=== PATIENT | female | born 1980 | race Caucasian/White ===

== ENCOUNTER → 2018-01-31 | Outpatient (CLI) | payer BC ==
[~2018-01-31] MED LIST: DIATRIZOATE MEGL/DIATRIZOA SOD 30 ML BTL PO ONE; IOPAMIDOL 370 MG/ML 200 ML INFUS..BTL INJ ONE; SODIUM CHLORIDE 0.9% 50ML 50 ML ONE
--- NOTE | 2018-01-31 09:24 | Diagnostic Imaging Report ---
PROCEDURE:CT ABDOMEN AND PELVIS WITH CONTRAST COMPARISON:None. INDICATIONS:Abdominal pain TECHNIQUE: Routine protocol Volumetric CT abdomen and pelvis after administration of 100 mL Isovue-370 intravenous contrast and 900 mL positive enteric contrast. Multiplanar reformatted images. DLP: 158.55 FINDINGS: Clear lung bases. No pleural effusions. Normal heart size. Liver: Normal Gallbladder: Normal Pancreas: Normal Spleen: Normal Adrenal glands: Normal Kidneys and ureters: Normal Urinary bladder: Normal Uterus and adnexa: Normal uterus. 3.5 cm simple appearing cyst in the left adnexa. Bowel: Normal caliber. Normal appendix. Peritoneum: Normal Vasculature: Mild atherosclerosis of the infrarenal aorta. Otherwise, normal Lymph nodes: Normal Skeleton: Intact. Soft tissues: Normal CONCLUSION: 1. No conspicuous etiology for abdominal pain. 2. 3.5 cm left adnexal cyst. This is almost certainly benign in a premenopausal patient and does not require followup per ACR consensus guidelines. Dictated by: Adrian Coon M.D. on 01/31/2018 at 9:25 Electronically approved by: Adrian Coon M.D. on 01/31/2018 at 9:25
== END ==
LOC: CT 07:36
PROVIDERS: ATTEND Internal Medicine Gastroenterology
DX: R10.9 Unspecified abdominal pain (principal)
CPT/HCPCS: 74177; 81025; Q9967

== ENCOUNTER → 2018-03-13 | Day surgery (SDC) | payer BC ==
[~2018-03-13] MED LIST changes: +BUPROPION XL150 MG PO; -DIATRIZOATE MEGL/DIATRIZOA SOD 30 ML BTL PO ONE; +FENTANYL CITRATE/PF 100MCG/2 ML INJ ONE; -IOPAMIDOL 370 MG/ML 200 ML INFUS..BTL INJ ONE; +LO LOESTRIN FE1 EACH PO; +MIDAZOLAM HCL 2 MG/2 ML VIAL ONE; +PROBIOTICS PO; +PROGESTERONE200 MG PO; +PROPOFOL IV EMULSION 10 MG/ML 50 ML VIAL ONE; -SODIUM CHLORIDE 0.9% 50ML 50 ML ONE; +[UNRECOGNIZED DRUG - OTHER] PO
--- OUTSIDE RECORDS SUMMARY | 2018-03-13 08:02 | XMS REPORT ---
Author Author [facility] Address Unknown Phone Unavailable Care Team Providers Care Referral And Information Aide Name Role Phone ROXANA HILL Unavailable Unavailable Problems This patient has no known problems. Allergies, Adverse Reactions, Alerts This patient has no known allergies or adverse reactions. Medications This patient has no known medications. Results Test Description Test Time Test Comments Text Results Atomic Results Result Comments CT ABDOMEN/PELVIS W [place] [address] Patient Name: OUMAR BARON N MR #: [id number] : 1980 Age/Sex: 37/F Req #: [id number] [facility] Physician: Ordered by: ROXANA HILL MD Report #: [id number] Location: CT Room/Bed: Procedure: [id number] CT/CT ABDOMEN/PELVIS W Exam Date: 01/31/18 Exam Time: 0850 REPORT STATUS: Signed PROCEDURE: CT ABDOMEN AND PELVIS WITH CONTRAST COMPARISON: None. INDICATIONS: Abdominal pain TECHNIQUE: Routine protocol Volumetric CT abdomen and pelvis after administration of 100 mL Isovue-370 intravenous contrast and 900 mL positive enteric contrast. Multiplanar reformatted images. DLP: 158.55 FINDINGS: Clear lung bases. No pleural effusions. Normal heart size. Liver: Normal Gallbladder: Normal Pancreas: Normal Spleen: Normal Adrenal glands: Normal Kidneys and ureters: Normal Urinary bladder: Normal Uterus and adnexa: Normal uterus. 3.5 cm simple appearing cyst in the left adnexa. Bowel: Normal caliber. Normal appendix. Peritoneum: Normal Vasculature: Mild atherosclerosis of the infrarenal aorta. Otherwise, normal Lymph nodes: Normal Skeleton: Intact. Soft tissues: Normal CONCLUSION: 1. No conspicuous etiology for abdominal pain. 2. 3.5 cm left adnexal cyst. This is almost certainly benign in a premenopausal patient and does not require followup per ACR consensus guidelines. Dictated by: Gianfranco Coon M.D. on 01/31/2018 at 9:25 Electronically approved by: Gianfranco Coon M.D. on 01/31/2018 at 9:25 Dictated By: GIANFRANCO COON MD 4 Transcribed By: CAROL on 01/31/18924 COPY TO: ROXANA HILL MD
--- OUTSIDE RECORDS SUMMARY | 2018-03-13 08:02 | XMS REPORT | Clinical Summary ---
Author Author [facility] Address Unknown Phone Unavailable Care Team Providers Care Sheet Metal Mechanic Name Role Phone Gretchen Monserrat MCELROY PCP Unavailable Allergies Active Allergy Reactions Severity Noted Date Comments Fluconazole Other (See Comments), Low 01/25/2017 Other(hemorrhoids) Rash Sulfa (Sulfonamide Rash Low 01/25/2017 Antibiotics) Current Medications Prescription Sig. Disp. Refills Start End Date Status Date buPROPion SR (WELLBUTRIN bupropion HCl SR 150 mg Active SR) 150 MG 12 hr tablet tablet,12 hr sustained-release TK 1 T PO BID norethindrone-e.estradiol Lo Loestrin Fe 1 mg-10 Active -iron (LO LOESTRIN FE) 1 mcg (24)/10 mcg (2) mg-10 mcg (24)/10 mcg (2) tablet tablet progesterone (PROMETRIUM) progesterone micronized Active 200 MG capsule 200 mg capsule TK 1 C PO QD L.acid/L.casei/B.bif/B.lo Take 1 tablet by mouth Active n/FOS (PROBIOTIC BLEND daily. ORAL) NON FORMULARY Take 2 capsules by mouth Active 2 (two) times a day. GANODERMA LUCIDIUM hydroxychloroquine Take 1 tablet (200 mg 30 tablet 3 02/15/20 Active (PLAQUENIL) 200 mg tablet total) by mouth daily. 18 19 progesterone (PROMETRIUM) Last 2 weeks of menstrual 01/26/20 02/08/20 Discontin 200 MG capsule cycle 17 18 ued Active Problems Problem Noted Date Bilateral ovarian cysts 02/07/2018 Raynaud's disease without gangrene 02/07/2018 Gastroesophageal reflux disease without esophagitis 02/07/2018 Family history of celiac disease 02/07/2018 Family history of autoimmune disorder 02/07/2018 Endometriosis 11/01/2017 SUPA positive 11/01/2017 Annual physical exam 11/01/2017 Dizziness 11/01/2017 Smoking 11/01/2017 Encounters Date Type Specialty Care Team Description 02/14/2018 Orders Only Rheumatology Darlin Michael MD 02/07/2018 Office Visit Rheumatology Darlin Michael MD Gastroesophageal reflux disease without esophagitis (Primary Dx); SUPA positive; Raynaud's disease without gangrene; Family history of celiac disease 01/16/2018 Telephone Family Medicine Rosario Godinez DO Chronic pelvic pain in female (Primary Dx) 11/03/2017 Telephone Family Medicine Rosario Godinez DO 11/01/2017 Office Visit Family Medicine Rosario Godinez DO Annual physical exam (Primary Dx); SUPA positive; Dizziness; Smoking 10/26/2017 Ancillary Radiology Alice Johnson MD Metrorrhagia Orders 10/25/2017 Transcribe Radiology Alice Johnson MD Metrorrhagia ( Primary Dx) Orders after 03/12/2017 Family History Medical History Relation Name Comments Celiac disease Daughter Heart attack Father Heart disease Father Lupus Maternal Aunt Alcohol abuse Maternal Grandmother Fibromyalgia Mother Miscarriages / Mother 3 miscarriages Stillbirths COPD Paternal Grandfather Heart disease Paternal Grandmother Mental illness Sister Relation Name Status Comments Daughter Father Maternal Aunt Alive Maternal Grandmother Mother Alive Paternal Grandfather Paternal Grandmother Sister Social History Tobacco Use Types Packs/Day Years Used Date Current Every Day Smoker Cigarettes Smokeless Tobacco: Never Used Comments: smoke 5 cigs a day Alcohol Use Drinks/Week oz/Week Comments No Sex Assigned at Date Recorded Not on file Last Filed Vital Signs Vital Sign Reading Time Taken Blood Pressure 107/74 02/07/2018 3:02 PM CDT Pulse 68 02/07/2018 3:02 PM CDT Temperature 37 C (98.6 F) 11/01/2017 2:22 PM TWILL CUTTER Respiratory Rate - - Oxygen Saturation 100% 11/01/2017 2:22 PM TWILL CUTTER Inhaled Oxygen - - Concentration Weight 44 kg (97 lb) 02/07/2018 3:02 PM CDT Height 152.4 cm (5') 02/07/2018 3:02 PM CDT Body Mass Index 18.94 02/07/2018 3:02 PM CDT Plan of Treatment Health Maintenance Due Date Last Done Comments CERVICAL CANCER SCREENING 1999 INFLUENZA VACCINE 05/03/2018 Results * Microscopic Examination (02/07/2018 4:40 PM) Component Value Ref Range WBC, UA None seen 0 - 5 /hpf RBC, UA None seen 0 - 2 /hpf Epithelial cells (non None seen 0 - 10 /hpf renal) Mucus, UA Present Not Estab. Bacteria, UA None seen None seen/Few Specimen Performing Laboratory [facility] Narrative Performed at:[address] [place], [place] [id number] Drapery Hanger: Nathaniel Goodson MD, Phone:[phone] * Urinalysis, automated with microscopy (02/07/2018 4:40 PM) Component Value Ref Range Specific gravity, urine 1.013 1.005 - 1.030 pH, urine 7.0 5.0 - 7.5 Color, UA Yellow Yellow Appearance Clear Clear WBC esterase, urine Negative Negative Protein, UA Negative Negative/Trace Glucose, urine Negative Negative Ketones, UA Negative Negative Occult blood, urine Negative Negative Bilirubin, UA Negative Negative Urobilinogen, UA 0.2 0.2 - 1.0 mg/dL Nitrite, UA Negative Negative Microscopic examination CommentComment: Microscopic follows if indicated. Microscopic examination See below:Comment: Microscopic was indicated and was performed. Specimen Performing Laboratory Urine [facility] Narrative Performed at:[address] [place], [place] [id number] Drapery Hanger: Nathaniel Goodson MD, Phone:[phone] * Celiac Disease HLA DQ Association (02/07/2018 4:16 PM) Component Value Ref Range DQ2 (DQA1 0501/0505,DQB1 Positive 02XX) DQ8 (DQA1 03XX, DQB1 Negative 0302) Comment: Final Results: DQA1*05:01,05:BHS DQB1*02:AYJSC,02:AYJSD Code Translation: AYJSD 02:10/04:04:02/01: 07:08:09:13 :14:15:16:17:18N/:19 :20N/:21:22:23:24::29/11:28/02:29::3102:32/02:33 /02:34/02:35/02:36/02:37/02:38/02:39/02:40 /02:41/02:42/02:43/02:44/02:45/02:46/02:47 /02:49/02:52/02:53Q/02:55/02:56/02:58N /02:59/02:60/02:61/02:63/02:64/02:66 /02:67N/02:68/02:69/02:70/02:71/02:72 /02:73/02:7402::::::85:86:87:::::9302:9402:96N/02:98/02:9902:100 /02:101 [facility] 10/07/06/13 [facility] 02:01:04/03:08: 06/04:13:14:15 :16:17:18N:21/11:20::22:23:24:25:29/11:28:29 :30:31:3202:3302:3402:3502:36 02:3702:3802:3902:4002:4102:4202:43 /02:44/02:45/02:46/02:47/02:49/02:52 /02:53Q/02:55/02:56/02:58N/02:59/02:60 /02:61/02:63/02:64/02:66/02:67N/02:68 /02:69/02:70/02:71/02:72/02:73/02:74/02:76 02:77:78:79/02:83/02:85/02:86/02:87 /02:88/02:90/02:91/02:92/02:93/02:94 /02:96N/02:98/02:99/02:100/02:101 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 Celiac Disease risk from the HLA DQA/DQB genotype is approximately 1:10 (10%) Allele interpretation for all loci based on IMGT/HLA database version 3.29 HLA [facility] [place] ID Number [id number] Greater than 95% of celiac patients are positive for either DQ2 or DQ8 (Isaac and Mickey, (1993) Gastroenterology 105:910-922). However these antigens may also be present in patients who do not have Celiac disease. Comment Comment Comment: This test was performed using Polymerase Chain Reaction/(PCR)Sequence Specific Oligonucleotide Probes (SSOP) (ChartCube) technique. Sequence Based Typing (SBT) and/or Sequence Specific Primers (SSP) may be used as supplemental methods when necessary. Please contact HLA Customer Service at if you have any questions. Director of HLA Laboratory Dr Channing Marquis, PhD Additional information Comment Comment: Celiac disease is a chronic immune-mediated inflammatory disorder with multi-systemic manifestations, both gastrointestinal and non- gastrointestinal. In genetically susceptible individuals, ingestion of gluten can cause inflammation and damage to the small intestine mucosa. Celiac disease has an incidence of 1:100 in the [place]. In order for celiac disease to develop, human leukocyte antigen (HLA) molecule DQ2 (encoded by alleles DQA1*0501 or *0505 plus DQB1*0201 or *0202), half of the DQ2 molecule, or DQ8 (encoded DQA*03 plus DQB1*0302) must be present. These molecules confer susceptibility to celiac disease by binding to gluten and interacting with intestinal T cells, leading to a pathologic immune response involving autoimmunity. The familial nature of susceptibility to celiac disease is shown by an 11-18% prevalence of this disorder in siblings of individuals with celiac disease and a 70% concordance rate between identical twins. Among celiac disease patients, >90% carry DQ2, 5-10% carry DQ8, and the remaining carry half DQ2. The presence of DQ2, half DQ2, or DQ8 alone is not sufficient for a diagnosis of celiac disease. Clinical symptoms, positive test results for endomysial, tissue transglutaminase or deamidated gliadin peptide antibodies, or abnormal small bowel biopsy results all support a diagnosis of celiac disease. Most individuals with a positive genetic result do not develop celiac disease. The risk for developing celiac disease in individuals with a positive genetic result approaches 40% if there is a known first degree relative with celiac disease. Table: Genetic Risk from HLA-DQA/DQB Genotypes Genotype Risk DQ2 + DQ8 1:7 (14.3%) DQ2 + DQ2 OR DQ2 Homozygous *02 1:10 (10%) DQ8 + DQ8 1:12 (8.4%) DQ8 + DQB1*02 1:24 (4.2%) Homozygous DQB*02 1:26 (3.8%) DQ2 alone 1:35 (2.9%) DQ8 alone 1:89 (1.1%) Population risk (genotype unknown) 1:100 (1%) 1/2 DQ2:DQB1*02 1:210 (0.5%) 1/2 DQ2:DQA1*05 1:1842 (0.05%) No HLA-DQA/DQB susceptibility alleles 1:2518 (<0.04%) From Kristie et al. 2009 for all genotypes except DQ8 + DQ8 DQ8 + DQ8 risk is from Mariama et al. 2009 Other influences on risk for celiac disease The overall risk for an individual to develop celiac disease is influenced not just by genetic risk from the HLA-DQA/DQB genotype, but by presence of symptoms of celiac disease, positive results for celiac antibody tests or intestinal biopsy, and having relatives with celiac disease. Celiac disease risk is also higher in individuals with IgA deficiency, Down syndrome, Ledezma syndrome, and the autoimmune disorders Type I diabetes mellitus, Sjogren syndrome, and thyroiditis. There are also additional genetic influences on the development of celiac disease in individuals predisposed to the disorder. References: 1. Macario GAVIN and Zhen Gonzales. Celiac Disease. N Eng J Med 2007; 357:9727-9417. 2. Kristie F, Lucille B, Bonamikaelo M et al. HLA-DQ and risk gradient for celiac disease. Hum Immunol 2009; 70:55-59. 3. Mariama MM, Paco TC, Radha FM et al. Stratifying risk for celiac disease in a large at-risk [facility] population by using HLA alleles. Clin Gastroenterol Hepatol 2009; 7:966-971. 4. Isaac MORFIN and Marissa BA. (2005). Celiac Disease Genetics: Current Concepts and Practical Applications. Clin Gastroenterol and Hepat 3:843-851. 5. Marci CL, Phil DO, Macario GAVIN, et al. Celiac Disease. In: Michael RA, Tao TC, Fede CR, Guerda Rdz, editors. Torie Yesweplay), [facility], [place], April 04, 2008:1-27. http://www.ncbi.nlm.nih.gov/piyush/br.fcgi?book =genepart=celiac PMID [id number] (PubMed) 6. Saniya Mays. Emerging concepts in celiac disease. Curr Opin Pediatr 2004;16:552-559. Specimen Performing Laboratory Blood [facility] Narrative Performed at:[facility] [place] [id number] Dra[employer] Hanger: Channing Marquis PhD, Phone:[phone] * Antiextractable Nuclear Antigens (02/07/2018 4:16 PM) Component Value Ref Range Ribonucleic antibody <0.2 0.0 - 0.9 AI (ARTIST'S MANAGER) Alas antibody <0.2 0.0 - 0.9 AI Specimen Performing Laboratory [facility] Narrative Performed at:[address] [place], [place] [id number] Drapery Hanger: Nathaniel Goodson MD, Phone:[phone] * Scl-70 antibody (02/07/2018 4:16 PM) Component Value Ref Range Scleroderma SCL-70 Ab <0.2 0.0 - 0.9 AI Specimen Performing Laboratory Blood [facility] Narrative Performed at:[address] [place], [place] [id number] Drapery Hanger: Nathaniel Goodson MD, Phone:[phone] * SSA/SSB antibody (02/07/2018 4:16 PM) Component Value Ref Range Sjogren's SS-A antibody <0.2 0.0 - 0.9 AI Sjogren's SS-B antibody <0.2 0.0 - 0.9 AI Specimen Performing Laboratory Blood [facility] Narrative Performed at:[address] [place], [place] [id number] Drapery Hanger: Nathaniel Goodson MD, Phone:[phone] * DNA Ab screen (02/07/2018 4:16 PM) Component Value Ref Range DNA ds antibody <1 0 - 9 IU/mL Comment: Negative <5 Equivocal 5 - 9 Positive >9 Specimen Performing Laboratory [facility] Narrative Performed at:[address] [place], [place] [id number] Drapery Hanger: Nathaniel Goodson MD, Phone:[phone] * Cyclic citrullinated peptide antibody, IgG (02/07/2018 4:16 PM) Component Value Ref Range Cyclic citrullin peptide 7 0 - 19 units Ab Comment: Negative <20 Weak positive 20 - 39 Moderate positive 40 - 59 Strong positive >59 Specimen Performing Laboratory [facility] Narrative Performed at:[address] [place], [place] [id number] Drapery Hanger: Tyree Coon MD, Phone:[phone] * IgG subclasses (02/07/2018 4:16 PM) Component Value Ref Range IgG 718 700 - 1,600 mg/dL Immunoglobulin G subclass 428 248 - 810 mg/dL 1 Immunoglobulin G subclass 141 130 - 555 mg/dL 2 Immunoglobulin G subclass 71 15 - 102 mg/dL 3 Immunoglobulin G subclass 2 2 - 96 mg/dL 4 Specimen Performing Laboratory [facility] Narrative Performed at:[address] [place], [place] [id number] Drapery Hanger: Nathaniel Goodson MD, Phone:[phone] Performed at: [place] [id number] Drapery Hanger: Tyree Coon MD, Phone:[phone] * Rheumatoid factor (02/07/2018 4:16 PM) Component Value Ref Range Rheumatoid arthritis <10.0 0.0 - 13.9 IU/mL latex turbid Specimen Performing Laboratory [facility] Narrative Performed at:[address] [place], [place] [id number] Drapery Hanger: Nathaniel Goodson MD, Phone:[phone] * Complement activity, total (02/07/2018 4:16 PM) Component Value Ref Range Complement activity, 58 42 - 60 U/mL total Comment: Effective February 20, 2018 the reference interval for Complement, Total (CH50) will be changing to: Age Male Female 1 - 30 days Not Estab. Not Estab. 31 days - 6 months >32 >20 7 months - 17 years >39 >39 >17 years >41 >41 Specimen Performing Laboratory [facility] Narrative Performed at: [place] [id number] Drapery Hanger: Tyree Coon MD, Phone:[phone] * C3 complement component (02/07/2018 4:16 PM) Component Value Ref Range C3 complement 79 (L) 82 - 167 mg/dL Specimen Performing Laboratory [facility] Narrative Performed at:[address] [place], [place] [id number] Drapery Hanger: Nathaniel Goodson MD, Phone:[phone] * C4 complement component (02/07/2018 4:16 PM) Component Value Ref Range C4 complement 10 (L) 14 - 44 mg/dL Specimen Performing Laboratory [facility] Narrative Performed at:[id number] Drapery Hanger: Nathaniel Goodson MD, Phone:[phone] * Immunoglobulin A (02/07/2018 4:16 PM) Component Value Ref Range IgA 135 87 - 352 mg/dL Specimen Performing Laboratory [facility] Narrative [facility]formed at:[facility] [place] [id number] Drapery Hanger: Nathaniel Goodson MD, Phone:[phone] * Immunoglobulin M (02/07/2018 4:16 PM) Component Value Ref Range IgM 66 26 - 217 mg/dL Specimen Performing Laboratory [facility] Narrative Performed at:[facility] [id number] Drapery Hanger: Nathaniel Goodson MD, Phone:[phone] * US Pelvic Transabdominal (11/14/2017 11:36 AM) Specimen Performing Laboratory [address] [address] Narrative EXAMINATION:US PELVIC TRANSVAGINAL, US PELVIC TRANSABDOMINAL CLINICAL HISTORY:N92.1 Excessive and frequent menstruation with irregular cycle, irregular cycles COMPARISON:None. TECHNIQUE:Transverse and longitudinal transvaginal and transabdominal sonographic images of the pelvis were obtained. Grayscale, color Doppler, and spectral waveform analysis of the ovarian vessels was performed. FINDINGS: The uterus measures 10.2 x 4.2 x 5.5 cm. There is a small amount of fluid in the endocervical canal. Endometrial stripe thickness of 12 mm with a slightly heterogeneous appearance of the endometrial echo complex but without evidence of a discrete focal lesion present. The right ovary measures 3.6 x 2.0 x 3.4 cm. There is a 2.2 cm simple follicular cyst or dominant follicle in the right ovary. The left ovary measures 2.5 x 1.6 x 2.1 cm. Normal vascular flow is seen in both ovaries. IMPRESSION: Endometrial stripe thickness of 12 mm which is within normal limits. Simple follicular cyst or dominant follicle in the right ovary. Normal left ovary. Small amount of fluid in the endocervical canal. [facility]-[id number] Procedure Note [facility], Radiology Results Incoming - 11/14/2017 11:57 AM TWILL CUTTER EXAMINATION: US PELVIC TRANSVAGINAL, US PELVIC TRANSABDOMINAL CLINICAL HISTORY: N92.1 Excessive and frequent menstruation with irregular cycle, irregular cycles COMPARISON: None. TECHNIQUE:Transverse and longitudinal transvaginal and transabdominal sonographic images of the pelvis were obtained. Grayscale, color Doppler, and spectral waveform analysis of the ovarian vessels was performed. FINDINGS: The uterus measures 10.2 x 4.2 x 5.5 cm. There is a small amount of fluid in the endocervical canal. Endometrial stripe thickness of 12 mm with a slightly heterogeneous appearance of the endometrial echo complex but without evidence of a discrete focal lesion present. The right ovary measures 3.6 x 2.0 x 3.4 cm. There is a 2.2 cm simple follicular cyst or dominant follicle in the right ovary. The left ovary measures 2.5 x 1.6 x 2.1 cm. Normal vascular flow is seen in both ovaries. IMPRESSION: Endometrial stripe thickness of 12 mm which is within normal limits. Simple follicular cyst or dominant follicle in the right ovary. Normal left ovary. Small amount of fluid in the endocervical canal. [facility]-[id number] * US Pelvic Transvaginal (11/14/2017 11:36 AM) Specimen Performing Laboratory [place] [id number] [place] [address] Narrative EXAMINATION:US PELVIC TRANSVAGINAL, US PELVIC TRANSABDOMINAL CLINICAL HISTORY:N92.1 Excessive and frequent menstruation with irregular cycle, irregular cycles COMPARISON:None. TECHNIQUE:Transverse and longitudinal transvaginal and transabdominal sonographic images of the pelvis were obtained. Grayscale, color Doppler, and spectral waveform analysis of the ovarian vessels was performed. FINDINGS: The uterus measures 10.2 x 4.2 x 5.5 cm. There is a small amount of fluid in the endocervical canal. Endometrial stripe thickness of 12 mm with a slightly heterogeneous appearance of the endometrial echo complex but without evidence of a discrete focal lesion present. The right ovary measures 3.6 x 2.0 x 3.4 cm. There is a 2.2 cm simple follicular cyst or dominant follicle in the right ovary. The left ovary measures 2.5 x 1.6 x 2.1 cm. Normal vascular flow is seen in both ovaries. IMPRESSION: Endometrial stripe thickness of 12 mm which is within normal limits. Simple follicular cyst or dominant follicle in the right ovary. Normal left ovary. Small amount of fluid in the endocervical canal. [facility]-[id number] Procedure Note [facility], Radiology Results Incoming - 11/14/2017 11:57 AM TWILL CUTTER EXAMINATION: US PELVIC TRANSVAGINAL, US PELVIC TRANSABDOMINAL CLINICAL HISTORY: N92.1 Excessive and frequent menstruation with irregular cycle, irregular cycles COMPARISON: None. TECHNIQUE:Transverse and longitudinal transvaginal and transabdominal sonographic images of the pelvis were obtained. Grayscale, color Doppler, and spectral waveform analysis of the ovarian vessels was performed. FINDINGS: The uterus measures 10.2 x 4.2 x 5.5 cm. There is a small amount of fluid in the endocervical canal. Endometrial stripe thickness of 12 mm with a slightly heterogeneous appearance of the endometrial echo complex but without evidence of a discrete focal lesion present. The right ovary measures 3.6 x 2.0 x 3.4 cm. There is a 2.2 cm simple follicular cyst or dominant follicle in the right ovary. The left ovary measures 2.5 x 1.6 x 2.1 cm. Normal vascular flow is seen in both ovaries. IMPRESSION: Endometrial stripe thickness of 12 mm which is within normal limits. Simple follicular cyst or dominant follicle in the right ovary. Normal left ovary. Small amount of fluid in the endocervical canal. [facility]-[id number] after 03/12/2017 Insurance Payer Benefit Subscriber ID Type Phone Address Plan / Group [facility] xxxxxxxxxxxx O CT IN AREA/HMO BLUE ESSENTIALS
--- NOTE | 2018-03-13 15:30 | Operative Report ---
DATE OF PROCEDURE: March 13, 2018 REFERRING PHYSICIAN: Dr. Rosario Godinez. PROCEDURE PERFORMED: Esophagogastroduodenoscopy with biopsies. INDICATIONS FOR PROCEDURE: Acid reflux and upper abdominal pain. MEDICATION: Patient was done under MAC. Please see anesthesiologist's note. PROCEDURE: With the patient in left lateral decubitus position, a flexible fiberoptic Olympus gastroscope was introduced into the esophagus under direct visualization without any difficulty. There was some patchy erythema noted in the distal esophagus. The scope was then advanced with ease into the stomach traversing a small sliding hiatal hernia. The mucosa overlying the antrum and the body revealed some diffuse erythema and [id number] edema, and biopsies were obtained and sent to stain for H. pylori. Pylorus appeared to be of normal contour and shape. It was intubated with ease and the scope was advanced all the way to the 2nd portion of the duodenum. Biopsies were obtained from the proximal 2nd portion to rule out sprue. Mucosa overlying the duodenal bulb appeared to be within normal limits. The scope was then withdrawn back into the stomach and retroflexed. The mucosa overlying the fundus and the cardia appeared to be within normal limits. The scope was then straightened out. The stomach was decompressed. The scope was subsequently withdrawn. Patient tolerated procedure well. IMPRESSION 1. Distal esophagitis. 2. Small sliding hiatal hernia. 3. Gastritis, biopsied. Biopsies sent to stain for Helicobacter pylori. 4. Rule out sprue. PLAN: Follow up histology. Initiate Protonix 40 mg 1 p.o. q.a.m. a.c. Job#: [id number] JIV cc:Rosario Godinez DO
== END | disposition home or self-care (01) ==
LOC: ENDO 08:00
PROVIDERS: ATTEND Internal Medicine Gastroenterology
DX: K29.50 Unspecified chronic gastritis without bleeding (principal); K20.9 Esophagitis, unspecified; K44.9 Diaphragmatic hernia without obstruction or gangrene; K21.9 Gastro-esophageal reflux disease without esophagitis; F41.9 Anxiety disorder, unspecified; F17.200 Nicotine dependence, unspecified, uncomplicated; Z88.2 Allergy status to sulfonamides; Z88.8 Allergy status to other drugs, medicaments and biological substances
CPT/HCPCS: 43239; 81025; J2250